=== PATIENT | male | born 1940 | race Caucasian/White ===

== ENCOUNTER 2019-01-02 21:31 | Emergency (ER) | payer BC, MEDICAID ==
[~2019-01-02] VITALS: Ht 177.8 cm; Wt 89.4 kg
[2019-01-02 21:41] VITALS: Ht 177.8 cm; Wt 89.4 kg
[2019-01-02 22:46] LABS: BASOPHIL % 0.6 % (0-2); PLATELET COUNT 209 x10^3mcL (130-400); RED CELL DISTRIBUTION WIDTH 13.4 % (11.5-14.5)
[2019-01-02 23:09] LABS: CALCIUM 7.9 mg/dL (8.5-10.1); CARBON DIOXIDE 24.9 mmol/L (21-32); CHLORIDE SERUM 106 mmol/L (98-107); CREATININE SERUM 1.6 mg/dL (0.7-1.3); GLUCOSE SERUM 279 mg/dL (74-106); POTASSIUM SERUM 4.9 mmol/L (3.5-5.1); SODIUM SERUM 138 mmol/L (136-145)
[2019-01-02 23:14] LABS: ALKALINE PHOSPHATASE 74 U/L (46-116); ALT/SGPT 13 U/L (16-63); AST/SGOT 12 U/L (15-37); TOTAL PROTEIN, SERUM 6.7 g/dL (6.4-8.2)
[2019-01-03 00:06] VITALS: BP 133/60
== END 2019-01-03 00:06 | disposition home or self-care (01) ==
LOC: ED 21:31
PROVIDERS: Emergency Medicine
DX: S16.1XXA Strain of muscle, fascia and tendon at neck level, initial encounter (principal); E11.9 Type 2 diabetes mellitus without complications; X58.XXXA Exposure to other specified factors, initial encounter; Y93.89 Activity, other specified; Y92.89 Other specified places as the place of occurrence of the external cause; Y99.8 Other external cause status
CPT/HCPCS: 36415; 82962; J1885